=== PATIENT | female | born 1960 | race Asian ===

== ENCOUNTER 2017-01-05 20:22 | Inpatient (IN) | payer OTHER ==
[~2017-01-05] VITALS: Ht 165.1 cm; Wt 72.1 kg
[2017-01-05 20:39] VITALS: BP 139/85; TEMP 100
[2017-01-05 21:32] LABS: PLATELET COUNT 164 K/uL (152-353)
[2017-01-05 21:42] LABS: POTASSIUM 4.2 mmol/L (3.6-5.2)
[2017-01-06] VITALS (20 sets, daily range): BP systolic 108–150; BP diastolic 70–98; TEMP 98.8–100.1; Ht 165.1 cm; Wt 72.1 kg
[2017-01-06 12:13] LABS: PLATELET COUNT 174 K/uL (152-353)
[2017-01-06 12:34] LABS: POTASSIUM 4.8 mmol/L (3.6-5.2)
[2017-01-07] VITALS: BP 127/69; TEMP 98
[2017-01-07 04:00] VITALS: BP 167/93; TEMP 99.7
[2017-01-07 06:14] LABS: PLATELET COUNT 156 K/uL (152-353)
[2017-01-07 06:23] LABS: POTASSIUM 4.6 mmol/L (3.6-5.2); SODIUM 140 mmol/L (136-145)
[2017-01-07 08:00] VITALS: BP 148/85; TEMP 99.1
[2017-01-07 12:05] VITALS: BP 131/74; TEMP 99.1
[2017-01-07 16:00] VITALS: BP 153/87; TEMP 99.1
[2017-01-07 20:00] VITALS: BP 158/83; TEMP 98.7
[2017-01-08] VITALS (10 sets, daily range): BP systolic 137–188; BP diastolic 46–96; TEMP 98.1–100.1
[2017-01-09] VITALS: BP 149/74; TEMP 98.6
[2017-01-09 04:00] VITALS: BP 170/83; TEMP 98.6
[2017-01-09 08:00] VITALS: BP 187/99; TEMP 98.5
[2017-01-09 12:00] VITALS: BP 174/92; TEMP 98.2
[2017-01-09 16:00] VITALS: BP 177/89; TEMP 98.1
[2017-01-09 20:00] VITALS: BP 149/76; TEMP 98.8
[2017-01-10 00:20] VITALS: BP 168/99; TEMP 98
[2017-01-10 04:00] VITALS: BP 167/90; TEMP 98
[2017-01-10 06:59] LABS: PLATELET COUNT 152 K/uL (152-353)
[2017-01-10 07:15] LABS: POTASSIUM 3.6 mmol/L (3.6-5.2); SODIUM 145 mmol/L (136-145)
[2017-01-10 08:51] VITALS: BP 188/97; TEMP 98.5
[2017-01-10 12:12] VITALS: BP 177/85; TEMP 98
[2017-01-10 16:00] VITALS: BP 171/82; TEMP 98.1
[2017-01-10 20:00] VITALS: BP 176/93; TEMP 98.4
== END 2017-01-10 20:45 | disposition home or self-care (01) | DRG 193 ==
LOC: ED 20:22 → ICU 22:45 → MED/SURG 01-06 20:05
PROVIDERS: Family Medicine
PROC: 0DB68ZX Excision of Stomach, Via Natural or Artificial Opening Endoscopic, Diagnostic (ICD-10-PCS; principal; 2017-01-08)
DX: J15.3 Pneumonia due to streptococcus, group B (principal); E13.10 Other specified diabetes mellitus with ketoacidosis without coma; E86.0 Dehydration; R11.2 Nausea with vomiting, unspecified; R63.4 Abnormal weight loss; I10 Essential (primary) hypertension; Z91.14 Patient's other noncompliance with medication regimen; K29.00 Acute gastritis without bleeding; K22.2 Esophageal obstruction; Z68.25 Body mass index [BMI] 25.0-25.9, adult; N28.9 Disorder of kidney and ureter, unspecified
CPT/HCPCS: 36415; 36600; 80053; 81000; 82550; 82805; 82948; 82962; 83735; 83880; 84100; 84484; 85027; 86318; 87040; 87070; 87077; 87081; 87185; 87186; 87205; 87804; 87880; 93005; 94640; 94664; 94668; 94760; 96365; 96372; 96376; 99284; J1815; J2001; J2405; J2704; J3490

== ENCOUNTER 2017-03-20 13:28 | Outpatient (CLI) | payer OTHER ==
[2017-03-20 14:31] LABS: PLATELET COUNT 204 K/uL (152-353)
[2017-03-20 14:50] LABS: POTASSIUM 4.4 mmol/L (3.6-5.2)
== END 2017-03-20 15:00 | disposition home or self-care (01) ==
LOC: LABW 13:28
PROVIDERS: Nurse Practitioner Family
DX: M54.17 Radiculopathy, lumbosacral region (principal); R53.83 Other fatigue; E53.8 Deficiency of other specified B group vitamins; E55.9 Vitamin D deficiency, unspecified; E78.4 Other hyperlipidemia; E11.9 Type 2 diabetes mellitus without complications
CPT/HCPCS: 36415; 80053; 80061; 82306; 82607; 83036; 84443; 85027

== ENCOUNTER 2017-03-26 22:16 | Emergency (ER) | payer OTHER ==
[~2017-03-26] VITALS: Ht 165.1 cm; Wt 69.4 kg
[2017-03-26 23:53] VITALS: BP 165/76; TEMP 98.7
== END 2017-03-26 23:54 | disposition home or self-care (01) ==
LOC: ED 22:16
DX: B02.9 Zoster without complications (principal)
CPT/HCPCS: 99283

== ENCOUNTER 2017-06-13 09:38 | Outpatient (CLI) | payer OTHER | END 2017-06-13 18:59 | disposition home or self-care (01) | LOC: MAMMO 09:38 | DX: Z12.31 Encounter for screening mammogram for malignant neoplasm of breast (principal) ==

== ENCOUNTER 2018-07-04 08:46 | Outpatient (CLI) | payer OTHER | END 2018-07-04 22:15 | disposition home or self-care (01) | LOC: MAMMO 08:46 | DX: Z12.31 Encounter for screening mammogram for malignant neoplasm of breast (principal) ==

== ENCOUNTER 2019-03-11 09:41 | Outpatient (CLI) | payer OTHER | END 2019-03-11 21:04 | disposition home or self-care (01) | LOC: RAD 09:41 | DX: M54.30 Sciatica, unspecified side (principal); E11.10 Type 2 diabetes mellitus with ketoacidosis without coma; E11.40 Type 2 diabetes mellitus with diabetic neuropathy, unspecified; E11.36 Type 2 diabetes mellitus with diabetic cataract; I10 Essential (primary) hypertension ==

== ENCOUNTER 2019-07-06 08:41 | Outpatient (CLI) | payer OTHER | END 2019-07-06 23:14 | disposition home or self-care (01) | LOC: MAMMO 08:41 | DX: Z12.31 Encounter for screening mammogram for malignant neoplasm of breast (principal) ==

== ENCOUNTER 2019-07-07 18:07 | Emergency (ER) | payer OTHER ==
[~2019-07-07] VITALS: Ht 165.1 cm; Wt 72.6 kg
[2019-07-07 18:48] LABS: PLATELET COUNT 207 K/uL (152-353)
[2019-07-07 19:01] LABS: POTASSIUM 4.2 mmol/L (3.6-5.2)
[2019-07-07 19:08] LABS: PARTIAL THROMBOPLASTIN TIME 28.8 SECONDS (24.5-33.6)
[2019-07-07 21:51] VITALS: BP 187/97; TEMP 97.6
== END 2019-07-07 21:51 | disposition home or self-care (01) ==
LOC: ED 18:07
PROVIDERS: Family Medicine
DX: S00.83XA Contusion of other part of head, initial encounter (principal); S16.1XXA Strain of muscle, fascia and tendon at neck level, initial encounter; S39.012A Strain of muscle, fascia and tendon of lower back, initial encounter; E11.65 Type 2 diabetes mellitus with hyperglycemia; V43.53XA Car driver injured in collision with pick-up truck in traffic accident, initial encounter; Y92.89 Other specified places as the place of occurrence of the external cause
CPT/HCPCS: 80053; 85027; 85610; 85730; 96372; 96374; 99284; J1815; J1885

== ENCOUNTER 2019-09-30 17:23 | Emergency (ER) | payer OTHER ==
[~2019-09-30] VITALS: Ht 165.1 cm; Wt 70.3 kg
[2019-09-30 18:59] LABS: PLATELET COUNT 181 K/uL (152-353)
[2019-09-30 19:04] LABS: POTASSIUM 3.9 mmol/L (3.6-5.2)
[2019-09-30 20:00] VITALS: BP 178/94; TEMP 98.1
== END 2019-09-30 20:00 | disposition home or self-care (01) ==
LOC: ED 17:23
PROVIDERS: Emergency Medicine
DX: J06.9 Acute upper respiratory infection, unspecified (principal); J40 Bronchitis, not specified as acute or chronic
CPT/HCPCS: 36415; 80053; 85027; 87502; 87651; 93005; 96372; 99283; J0696

== ENCOUNTER 2020-04-14 09:21 | Outpatient (CLI) | payer OTHER | END 2020-04-14 20:00 | disposition home or self-care (01) | LOC: CT 09:21 | DX: M54.12 Radiculopathy, cervical region (principal) ==

== ENCOUNTER 2020-06-16 10:04 | Outpatient (CLI) | payer OTHER | END 2020-06-16 21:49 | disposition home or self-care (01) | LOC: CT 10:04 | DX: M54.12 Radiculopathy, cervical region (principal) ==

== ENCOUNTER 2020-08-15 09:59 | Outpatient (CLI) | payer OTHER | END 2020-08-15 23:24 | disposition home or self-care (01) | LOC: MRI 09:59 | DX: M47.22 Other spondylosis with radiculopathy, cervical region (principal); M50.323 Other cervical disc degeneration at C6-C7 level ==

== ENCOUNTER 2020-08-19 09:13 | Outpatient (CLI) | payer OTHER | END 2020-08-19 19:07 | disposition home or self-care (01) | LOC: MAMMO 09:13 | DX: Z12.31 Encounter for screening mammogram for malignant neoplasm of breast (principal) ==

== ENCOUNTER 2020-10-04 17:50 | Outpatient (CLI) | payer OTHER | END 2020-10-04 18:58 | disposition home or self-care (01) | LOC: LAB 17:50 | PROVIDERS: ATTEND Nurse Practitioner | DX: E11.9 Type 2 diabetes mellitus without complications (principal) | CPT/HCPCS: 83036; 84439; 84443 ==

== ENCOUNTER 2020-12-01 09:22 | Outpatient (CLI) | payer OTHER | END 2020-12-01 21:10 | disposition home or self-care (01) | LOC: LABW 09:22 | PROVIDERS: ATTEND Nurse Practitioner | DX: E03.8 Other specified hypothyroidism (principal) | CPT/HCPCS: 36415; 84439; 84443; 84481 ==

== ENCOUNTER 2021-01-25 08:55 | Outpatient (CLI) | payer OTHER | END 2021-01-25 21:30 | disposition home or self-care (01) | LOC: RAD 08:55 | PROVIDERS: ATTEND Internal Medicine | DX: Z13.820 Encounter for screening for osteoporosis (principal); N95.8 Other specified menopausal and perimenopausal disorders ==

== ENCOUNTER 2021-02-15 12:51 | Day surgery (SDC) | payer OTHER ==
[2021-02-08 11:04] LABS: PLATELET COUNT 196 K/uL (152-353)
[~2021-02-15] VITALS: Ht 30.5 cm; Wt 0.5 kg
== END 2021-02-15 15:33 | disposition home or self-care (01) ==
LOC: OR 12:51
PROVIDERS: ATTEND Internal Medicine Gastroenterology
PROC: 0DJD8ZZ Inspection of Lower Intestinal Tract, Via Natural or Artificial Opening Endoscopic (ICD-10-PCS; principal; 2021-02-15)
DX: K64.8 Other hemorrhoids (principal); Z12.11 Encounter for screening for malignant neoplasm of colon; Z20.822 Contact with and (suspected) exposure to COVID-19
CPT/HCPCS: 80053; 85027; 87635; J2704; U0003

== ENCOUNTER 2021-04-03 08:51 | Outpatient (CLI) | payer OTHER | END 2021-04-03 12:00 | disposition home or self-care (01) | LOC: RESP 08:51 → US 09:00 → MAMMO 09:00 → RESP 12:00 | PROVIDERS: ATTEND Physician Assistant | DX: Z12.31 Encounter for screening mammogram for malignant neoplasm of breast (principal); N64.4 Mastodynia; I87.8 Other specified disorders of veins; R01.1 Cardiac murmur, unspecified ==

== ENCOUNTER 2021-04-21 09:01 | Outpatient (CLI) | payer OTHER | END 2021-04-21 21:53 | disposition home or self-care (01) | LOC: MAMMO 09:01 | PROVIDERS: ATTEND Nurse Practitioner | DX: Z12.31 Encounter for screening mammogram for malignant neoplasm of breast (principal); N64.4 Mastodynia | CPT/HCPCS: G0279 ==

== ENCOUNTER 2021-07-06 09:05 | Outpatient (CLI) | payer OTHER | END 2021-07-06 19:07 | disposition home or self-care (01) | LOC: RESP 09:05 | PROVIDERS: ATTEND Specialist | DX: I10 Essential (primary) hypertension (principal); E11.9 Type 2 diabetes mellitus without complications; E78.2 Mixed hyperlipidemia; R01.1 Cardiac murmur, unspecified; R94.30 Abnormal result of cardiovascular function study, unspecified; R93.1 Abnormal findings on diagnostic imaging of heart and coronary circulation; I34.0 Nonrheumatic mitral (valve) insufficiency ==

== ENCOUNTER 2022-01-02 10:28 | Outpatient (CLI) | payer OTHER | END 2022-01-02 19:11 | disposition home or self-care (01) | LOC: MAMMO 10:28 | PROVIDERS: ATTEND Nurse Practitioner Family | DX: N64.4 Mastodynia (principal); N60.82 Other benign mammary dysplasias of left breast; Z12.31 Encounter for screening mammogram for malignant neoplasm of breast ==

== ENCOUNTER 2022-02-15 07:54 | Outpatient (CLI) | payer OTHER | END 2022-02-15 19:25 | disposition home or self-care (01) | LOC: RAD 07:54 | PROVIDERS: ATTEND Nurse Practitioner Family | DX: M25.512 Pain in left shoulder (principal); M54.59 Other low back pain ==

== ENCOUNTER 2022-05-29 08:46 | Outpatient (CLI) | payer OTHER | END 2022-05-29 21:33 | disposition home or self-care (01) | LOC: MAMMO 08:46 | PROVIDERS: ATTEND Obstetrics & Gynecology | DX: N64.4 Mastodynia (principal) | CPT/HCPCS: G0279 ==

== ENCOUNTER 2022-06-20 15:42 | Observation (INO) | payer OTHER ==
[~2022-06-20] VITALS: Ht 165.1 cm; Wt 74.8 kg
[2022-06-20] VITALS (9 sets, daily range): BP systolic 130–159; BP diastolic 73–101; TEMP 100.2
[2022-06-20 16:34] LABS: PLATELET COUNT 159 K/uL (152-353)
[2022-06-20 16:46] LABS: POTASSIUM 3.5 mmol/L (3.6-5.2)
[2022-06-20 17:10] LABS: PARTIAL THROMBOPLASTIN TIME 31.4 SECONDS (24.5-33.6)
[2022-06-21] VITALS: BP 138/76; TEMP 98.9
[2022-06-21 03:34] VITALS: BP 152/86; TEMP 99; Ht 165.1 cm; Wt 74.8 kg
[2022-06-21 04:00] VITALS: BP 170/88; TEMP 98.2
[2022-06-21 06:44] LABS: PLATELET COUNT 140 K/uL (152-353)
[2022-06-21 06:49] LABS: POTASSIUM 3.9 mmol/L (3.6-5.2)
[2022-06-21] MEDS ORDERED: XALATAN0.005 % OPTH (15:48)
[2022-06-21] MEDS ORDERED: COMBIGAN0.2 MG/0.5 OPTH (15:50)
[2022-06-21] MEDS ORDERED: PRAVASTATIN 20 MG PO (15:51)
[2022-06-21] MEDS ORDERED: LEVEMIR FL100 UNIT/M SC (15:54)
[2022-06-21] MEDS ORDERED: LISINOPRIL 20 MG PO (15:55)
[2022-06-21] MEDS ORDERED: GABA300C2 PO (15:56)
[2022-06-21] MEDS ORDERED: KLOR-CON M2020 MEQ PO (15:57)
[2022-06-21] MEDS ORDERED: CARV6.25 PO (15:58)
[2022-06-21] MEDS ORDERED: NIFE60TA5 PO (15:58)
[2022-06-21] MEDS ORDERED: FURO40TA93 PO (15:59)
== END 2022-06-21 13:03 | disposition home or self-care (01) ==
LOC: ED 15:42 → MED/SURG 19:25
PROVIDERS: ADMIT Emergency Medicine; ATTEND Internal Medicine
DX: R07.89 Other chest pain (principal); I10 Essential (primary) hypertension; R42 Dizziness and giddiness; M54.89 Other dorsalgia; M25.512 Pain in left shoulder
CPT/HCPCS: 36415; 80053; 82550; 82948; 83880; 84484; 85027; 85610; 85730; 87635; 93005; 96372; 96374; 96375; 99220; 99284; G0378; J1815; J2270; J2405; J3490; U0003

== ENCOUNTER 2023-01-22 11:05 | Outpatient (CLI) | payer OTHER ==
[~2023-01-22 11:05] MED LIST: CARV6.25 PO; COMBIGAN0.2 MG/0.5 OPTH; FURO40TA93 PO; GABA300C2 PO; KLOR-CON M2020 MEQ PO; LEVEMIR FL100 UNIT/M SC; LISINOPRIL 20 MG PO; NIFE60TA5 PO; PRAVASTATIN 20 MG PO; XALATAN0.005 % OPTH
== END 2023-01-22 19:14 | disposition home or self-care (01) ==
LOC: MAMMO 11:05
PROVIDERS: ATTEND Nurse Practitioner Family
DX: Z12.31 Encounter for screening mammogram for malignant neoplasm of breast (principal)